=== PATIENT | male | born 1975 | race Caucasian/White ===

== ENCOUNTER 2022-09-24 09:40 | Emergency (ER) | payer OTHER ==
[2022-09-24 09:46] VITALS: TEMP 98.5
[2022-09-24] MEDS ORDERED: SODIUM CHLORIDE 0.9% 1,000 ML IV STA (10:17)
[2022-09-24 10:47] LABS: Basophils % (A) 0 %; Eosinophils # (A) 0.1 k/uL (0-0.7); Eosinophils % (A) 1 %; HCT 40.4 % (39.0-53.0); HGB 13.9 gm/dL (13.0-17.5); Lymphocytes # (A) 3.3 k/uL (1.0-4.8); Lymphocytes % (A) 29 %; MCH 29.7 pg (25.0-35.0); MCHC 34.3 g/dL (31.0-37.0); MCV 86.4 fL (80.0-100.0); Mean Platelet Volume 7.8; Monocytes # (A) 0.7 k/uL (0-1.0); Monocytes % (A) 6 %; Neutrophils % (A) 61 %; Platelet Count 210 k/uL (150-450); RBC 4.67 m/uL (4.30-5.90); RDW 13.8 % (11.5-15.5); WBC 11.4 k/uL (3.8-10.6)
[2022-09-24 10:58] LABS: Appearance,Urine Clear (Clear); Bacteria,Urine Rare /hpf; Bilirubin,Urine Negative (Negative); Blood,Urine Large (Negative); Color,Urine Yellow; Glucose,Urine (UA) Negative (Negative); Ketones,Urine Negative (Negative); Leukocyte Esterase,Urine Small (Negative); Nitrite,Urine Negative (Negative); PH, Urine 6.5 (5.0-8.0); Protein,Urine 1+ (Negative); RBC,Urine 30 /hpf (0-5); Specific Gravity,Urine 1.012 (1.001-1.035); Urobilinogen,Urine <2.0 mg/dL (<2.0); WBC,Urine 3 /hpf (0-5)
--- NOTE | 2022-09-24 11:05 | ED ---
General Adult HPI - General Chief complaint: Dizziness Stated complaint: Dizziness,Light Head Time Seen by Provider: 09/24/22 09:48 Source: patient, RN notes reviewed Mode of arrival: ambulatory Limitations: no limitations - History of Present Illness Initial comments: Patient is a 47 year old male presenting to the emergency room with complaints of headache and a dome like her conference on the top of his head ongoing for the last 2 days. He reports not having a headache similar to this previously. He also reports dizziness which is positional that began today he denies any dizziness at this time. He took Tylenol prior to his arrival for his headache which helped some but his headache still persists. He denies any focal neurological deficits, including weakness, blurred or double vision, paresthesia or ulcer. He also complains of intermittent nausea and vomiting ongoing for approximately the last 6-7 months. He states that he has this approximately twice a week with out any known aggravating or alleviating factors except he notices when he gets in and out of his vehicle with climate change that he does become nauseated at times. He denies any unintentional weight changes, changes in bowel movements, abdominal pain, diarrhea, constipation, fevers or chills. He has no significant past medical history. - Related Data Home Medications Medication Instructions Recorded Confirmed No Known Home Medications 09/24/22 09/24/22 Allergies Allergy/AdvReac Type Severity Reaction Status Date / Time No Known Allergies Allergy Verified 09/24/22 11:12 Review of Systems ROS Statement: Those systems with pertinent positive or pertinent negative responses have been documented in the HPI. ROS Other: All systems not noted in ROS Statement are negative. Past Medical History Past Medical History: No Reported History History of Any Multi-Drug Resistant Organisms: None Reported Past Surgical History: No Surgical Hx Reported Past Psychological History: No Psychological Hx Reported Smoking Status: Never smoker Past Alcohol Use History: Occasional Past Drug Use History: Marijuana General Exam Limitations: no limitations General appearance: alert, in no apparent distress Head exam: Present: atraumatic, normocephalic, normal inspection Eye exam: Present: normal appearance, PERRL, EOMI. Absent: scleral icterus, conjunctival injection, nystagmus, periorbital swelling ENT exam: Present: normal exam, mucous membranes moist, TM's normal bilaterally (Right TM with scar tissue from previous TM perforations). Absent: normal external ear exam Neck exam: Present: normal inspection, full ROM. Absent: lymphadenopathy Respiratory exam: Present: normal lung sounds bilaterally. Absent: respiratory distress, wheezes, rales, rhonchi, stridor Cardiovascular Exam: Present: regular rate, normal rhythm, normal heart sounds. Absent: systolic murmur, diastolic murmur, rubs, gallop, clicks GI/Abdominal exam: Present: soft, normal bowel sounds. Absent: distended, tenderness, guarding, rebound, rigid Extremities exam: Present: normal inspection, full ROM. Absent: pedal edema, joint swelling Back exam: Present: normal inspection, full ROM. Absent: CVA tenderness (R), CVA tenderness (L) Neurological exam: Present: alert, oriented X3, CN II-XII intact Psychiatric exam: Present: normal affect, normal mood Skin exam: Present: warm, dry, intact, normal color. Absent: rash Course Vital Signs 09/24/22 09/24/22 09/24/22 09:43 10:37 11:16 Temperature 98.5 F Pulse Rate 81 60 Respiratory 16 18 Rate Blood Pressure 125/78 107/64 Blood Pressure 108/73 [Left Arm Sitting] Blood Pressure 113/85 [Left Arm Standing] Blood Pressure 111/72 [Left Arm Supine] O2 Sat by Pulse 98 98 Oximetry Medical Decision Making - Medical Decision Making Was pt. sent in by a medical professional or institution ([facility], [employer], urgent care, hospital, or intermediate...) When possible be specific @ -No Did you speak to anyone other than the patient for history (EMS, parent, family, police, friend...)? What history was obtained from this source @ -No Did you review nursing and triage notes (agree or disagree)? Why? @ -I reviewed and agree with nursing and triage notes Were old charts reviewed (outside hosp., previous admission, EMS record, old EKG, old radiological studies, urgent care reports/EKG's, intermediate records)? Report findings @ -No old charts were reviewed Differential Diagnosis (chest pain, altered mental status, abdominal pain women, abdominal pain men, vaginal bleeding, weakness, fever, dyspnea, syncope, headache, dizziness, GI bleed, back pain, seizure, CVA, palpatations, mental health, musculoskeletal)? @ -Differential Dizziness: Benign paroxysmal positional Vertigo, Menieres disease, otitis media, acoustic neuroma, vertebrobasilar insufficiency, cerebellar stroke, encephalitis, hypovo lemic, arrhythmia, coronary artery syndrome, anemia, this is not meant to be an all-inclusive list Differential Headache: Migraine, tension, cluster, carbon monoxide, central venous thrombosis, pension karma temporal arteritis, acute closure glaucoma, intercranial hemorrhage, mastoiditis, sinusitis, head injury, this is not meant to be an all-inclusive list. EKG interpreted by me (3pts min.). @ -Sinus rhythm, ventricular rate 60 bpm, IL interval 163 ms, QRS duration 96 ms, QT/QTC 382/399 ms, PRT axes 20, -7, 18 X-rays interpreted by me (1pt min.). @ -None done CT interpreted by me (1pt min.). @ -CT of brain without contrast: No acute intracranial process. No intracranial hemorrhage, mass or shift. U/S (1pt. min.). @ -Ultrasound kidney ureter and bladder report per radiologist not interpreted by me, right renal cyst. What testing was considered but not performed or refused? (CT, X-rays, U/S, labs)? Why? @ -None What meds were considered but not given or refused? Why? @ -None Did you discuss the management of the patient with other professionals (professionals i.e. , PA, [employer] T[employer] T[employer]ER, lab, RT, psych nurse, licensed social worker, operations supervisor, teacher, lead security officer, adult protective caseworker)? Give summary @ -No Was smoking cessation discussed for >3mins.? @ -No Was critical care preformed (if so, how long)? @ -No Were there social determinants of health that impacted care today? How? (Homelessness, low income, unemployed, alcoholism, drug addiction, transportation, low edu. Level, literacy, decrease access to med. care, penitentiary, rehab)? @ -No Was there de-escalation of care discussed even if they declined (Discuss DNR or withdrawal of care, Hospice)? DNR status @ -No What co-morbidities impacted this encounter? (DM, HTN, Smoking, COPD, CAD, Cancer, CVA, ARF, Chemo, Hep., AIDS, mental health diagnosis, sleep apnea, morbid obesity)? @ -None Was patient admitted / discharged? Hospital course, mention meds given and route, prescriptions, significant lab abnormalities, going to OR and other pertinent info. @ -47 0 male presenting to the emergency room with complaints of saucerlike headache to the top of his head with associated dizziness with headache at this time without any dizziness at this time. He also reports intermittent nausea vomiting over the last 6 months without any vomiting today. Will obtain CT of the brain given new headache characteristics, obtain an EKG along with CBC, CMP, amylase, lipase and urinalysis will give 1 L of IV fluid. Will defer analgesics until after computed tomography scan as patient already took Tylenol prior to his arrival. EKG shows sinus rhythm. CT of the brain negative for acute intracranial process. Patient reveals significantly large amounts of caffeine intake. Laboratory studies reveal microscopic hematuria with large amount of blood, small leukocyte esterase, urine RBCs 30, urine WBCs 3 urine bacteria rare, +1 protein. He denies any gross hematuria. CBC was slightly elevated WBC at 11.4 no other abnormalities. CMP, amylase and lipase all normal. Due to newly diagnosed microscopic hematuria along with dizziness and intermittent nausea and vomiting will proceed with ultrasound of the kidneys ureter and bladder for further evaluation. No indication for further laboratory studies or medication administration at this time. Ultrasound kidney ureter bladder demonstrates a right renal cyst no indication for further diagnostic imaging or laboratory studies at this time. Encouraged good hydration and follow-up with primary care provider regarding intermittent but persistent chronic nausea and vomiting along with referral to urology for further evaluation of microscopic hematuria. Advised avoidance of caffeine. Shins and concerns answered. Return parameters to the emergency room discussed. Will discharge home in stable condition advising good hydration and use of [id number] Tylenol for headache and dizziness, urology follow-up for microscopic hematuria, and primary care follow-up along with good hydration for chronic intermittent nausea and vomiting. Undiagnosed new problem with uncertain prognosis? @ -No Drug Therapy requiring intensive monitoring for toxicity (Heparin, Nitro, Insulin, Cardizem)? @ -No Were any procedures done? @ -No Diagnosis/symptom? @ -Headache with dizziness Acute, or Chronic, or Acute on Chronic? @ -Acute Uncomplicated (without systemic symptoms) or Complicated (systemic symptoms)? @ -Uncomplicated Side effects of treatment? @ -No Exacerbation, Progression, or Severe Exacerbation? @ -No Poses a threat to life or bodily function? How? (Chest pain, USA, ID, pneumonia, PE, COPD, DKA, ARF, appy, cholecystitis, CVA, Diverticulitis, Homicidal, Suicidal, threat to staff... and all critical care pts) @ -No @ -Diagnosis/symptom? @ -Microscopic hematuria Acute, or Chronic, or Acute on Chronic? @ -Acute Uncomplicated (without systemic symptoms) or Complicated (systemic symptoms)? @ -Uncomplicated Side effects of treatment? @ -none Exacerbation, Progression, or Severe Exacerbation] @ -no Poses a threat to life or bodily function? @ -no Diagnosis/symptom? @ -Nausea and vomiting Acute, or Chronic, or Acute on Chronic? @ -Chronic Uncomplicated (without systemic symptoms) or Complicated (systemic symptoms)? @ -Uncomplicated Side effects of treatment? @ -none Exacerbation, Progression, or Severe Exacerbation] @ -no Poses a threat to life or bodily function? @ -no. Case discussed with Dr. Lemons. - Lab Data Result diagrams: 09/24/22 10:28 09/24/22 10:28 Lab Results 09/24/22 09/24/22 09/24/22 Range/Units 10:28 10:28 10:28 WBC 11.4 H (3.8-10.6) k/uL RBC 4.67 (4.30-5.90) m/uL Hgb 13.9 (13.0-17.5) gm/dL Hct 40.4 (39.0-53.0) % MCV 86.4 (80.0-100.0) fL MCH 29.7 (25.0-35.0) pg MCHC 34.3 (31.0-37.0) g/dL RDW 13.8 (11.5-15.5) % Plt Count 210 (150-450) k/uL MPV 7.8 Neutrophils % 61 % Lymphocytes % 29 % Monocytes % 6 % Eosinophils % 1 % Basophils % 0 % Neutrophils # 7.0 (1.3-7.7) k/uL Lymphocytes # 3.3 (1.0-4.8) k/uL Monocytes # 0.7 (0-1.0) k/uL Eosinophils # 0.1 (0-0.7) k/uL Basophils # 0.0 (0-0.2) k/uL Sodium 138 (137-145) mmol/L Potassium 4.1 (3.5-5.1) mmol/L Chloride 104 (98-107) mmol/L Carbon Dioxide 26 (22-30) mmol/L Anion Gap 8 mmol/L BUN 13 (9-20) mg/dL Creatinine 0.83 (0.66-1.25) mg/dL Est GFR (CKD-EPI)AfAm >90 (>60 ml/min/1.73 sqM) Est GFR (CKD-EPI)NonAf >90 (>60 ml/min/1.73 sqM) Glucose 92 (74-99) mg/dL Calcium 9.2 (8.4-10.2) mg/dL Total Bilirubin 0.4 (0.2-1.3) mg/dL AST 42 (17-59) U/L ALT 29 (4-49) U/L Alkaline Phosphatase 73 (38-126) U/L Total Protein 7.4 (6.3-8.2) g/dL Albumin 4.0 (3.5-5.0) g/dL Amylase 110 (30-110) U/L Lipase 120 (23-300) U/L Urine Color Yellow Urine Appearance Clear (Clear) Urine pH 6.5 (5.0-8.0) Ur Specific [place] 1.012 (1.001-1.035) Urine Protein 1+ H (Negative) Urine Glucose (UA) Negative (Negative) Urine Ketones Negative (Negative) Urine Blood Large H (Negative) Urine Nitrite Negative (Negative) Urine Bilirubin Negative (Negative) Urine Urobilinogen <2.0 (<2.0) mg/dL Ur Leukocyte Esterase Small H (Negative) Urine RBC 30 H (0-5) /hpf Urine WBC 3 (0-5) /hpf Urine Bacteria Rare H (None) /hpf - Radiology Data Radiology results: report reviewed, image reviewed Disposition Clinical Impression: Dizziness, Headache, Microscopic hematuria, Nausea and vomiting Disposition: HOME SELF-CARE Condition: Stable Instructions (If sedation given, give patient instructions): Dizziness (ED), Acute Headache (DC), Acute Nausea and Vomiting (DC) Additional Instructions: Stay well hydrated. Take Tylenol as needed for headache. Avoidance of caffeinated products encouraged. Please follow-up with your primary care provider for further evaluation of nausea and vomiting. Please follow-up with urology regarding microscopic hematuria. Please return to the Emergency Department if symptoms worsen or any other concerns. Is patient prescribed a controlled substance at d/c from ED?: No Referrals: None,Stated [Primary Care Provider] - 1-2 days Kelton Bui MD [STAFF PHYSICIAN] - 1-2 days Time of Disposition: 12:52
[2022-09-24 11:06] LABS: ALT 29 U/L (4-49); AST 42 U/L (17-59); African American GFR (CKD) >90 (>60 ml/min/1.73 sqM); Alkaline Phosphatase 73 U/L (38-126); Amylase 110 U/L (30-110); Anion Gap 8 mmol/L; Blood Urea Nitrogen 13 mg/dL (9-20); Calcium 9.2 mg/dL (8.4-10.2); Carbon Dioxide 26 mmol/L (22-30); Chloride 104 mmol/L (98-107); Glucose 92 mg/dL (74-99); Lipase 120 U/L (23-300); Non-African American GFR(CKD) >90 (>60 ml/min/1.73 sqM); Potassium 4.1 mmol/L (3.5-5.1); Sodium 138 mmol/L (137-145); Total Bilirubin 0.4 mg/dL (0.2-1.3); Total Protein 7.4 g/dL (6.3-8.2)
[2022-09-24 11:18] VITALS: RESP 18
--- NOTE | 2022-09-24 11:33 | CT ---
EXAMINATION TYPE: CT brain wo con CT DLP: 1158.4 mGycm, Automated exposure control for dose reduction was used. DATE OF EXAM: 09/24/2022 11:00 AM COMPARISON: None. CLINICAL INDICATION:Male, 47 years old with history of new onset headache and dizziness, New onset he adache and dizziness TECHNIQUE: Brain: Multiple axial CT images of the brain were obtained without IV contrast. Coronal and sagittal reformats reviewed. FINDINGS: Brain: Extra-axial spaces: No abnormal extra-axial fluid collections. Ventricular system: Within normal limits Cerebral parenchyma: No acute intraparenchymal hemorrhage or mass effect. The marcus-white junction is well differentiated. Nonspecific left basal ganglia calcifications. Cerebellum: Unremarkable. Mass effect: No evidence of midline shift. Intracranial vasculature: unremarkable Soft tissues: Normal. Calvarium/osseous structures: No depressed skull fracture. Paranasal sinuses and mastoid air cells: The mastoid air cells are clear. Mild mucosal thickening of the right maxilla sinus. Visualized orbits: Orbital contents are intact. IMPRESSION: No acute intracranial process.
--- NOTE | 2022-09-24 12:32 | US ---
EXAMINATION TYPE: US kidneys/renal and bladder DATE OF EXAM: 09/24/2022 COMPARISON: NONE CLINICAL INDICATION: Male, 47 years old with history of hematuria; Microscopic hematuria. EXAM MEASUREMENTS: Right Kidney: 10.8 x 5.5 x 5.5 cm Left Kidney: 11.0 x 4.4 x 5.9 cm Right Kidney: Medial anechoic lesion at hilum = 1.1 x 1.5 cm Left Kidney: No hydronephrosis or masses seen Bladder: distended, anechoic Bilateral Jets not seen There is no evidence for hydronephrosis at this point in time. No nephrolithiasis is seen. The urin keysha bladder is anechoic. Bilateral ureteral jets are seen. IMPRESSION: small parapelvic cyst noted in the right kidney.
[2022-09-24 13:15] VITALS: BP 116/83; PULSE 68
== END 2022-09-24 13:16 | disposition home or self-care (01) ==
LOC: EC 09:40
DX: R42 Dizziness and giddiness (principal); R31.29 Other microscopic hematuria; R11.2 Nausea with vomiting, unspecified; R51.9 Headache, unspecified; F12.90 Cannabis use, unspecified, uncomplicated
CPT/HCPCS: 36415; 70450; 76770; 80053; 81001; 82150; 83690; 85025; 93005; 96360; 99284